=== PATIENT | female | born 1975 | race Caucasian/White ===

== ENCOUNTER 2018-10-02 15:00 | Emergency (ER) | payer SELFPAY ==
[~2018-10-02] VITALS: Ht 157.5 cm; Wt 81.6 kg
[2018-10-02 15:24] VITALS: BP 143/74
--- NOTE | 2018-10-02 15:35 | PHYS DOC ---
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 Patient states they were outside all weekend and feels like there might be something that got in her left eye. States her eye has been watering and red since the symptoms started. 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 States her pressures range from 30-50 in left eye. Patient has no symptoms to right eye that she sees out of. States she has not tried any medications at home. Denies eye pain, foreign body sensation, nausea/vomiting, headache, fever, injury, or diplopia. Review of Systems Review of Systems Constitutional: Denies fever or chills [] Eyes: Complains of left eye redness. Denies change in visual acuity or eye pain [] HENT: Denies nasal congestion or sore throat [] Respiratory: Denies cough or shortness of breath [] Cardiovascular: No additional information not addressed in HPI [] GI: Denies abdominal pain, nausea, vomiting, bloody stools or diarrhea [] : Denies dysuria or hematuria [] Musculoskeletal: Denies back pain or joint pain [] Integument: Denies rash or skin lesions [] Neurologic: Denies headache, focal weakness or sensory changes [] All other systems were reviewed and found to be within normal limits, except as documented in this note. Current Medications Current Medications Current Medications Medications (Trade) Dose Ordered Sig/Abbi Start Time Stop Time Status Last Admin Dose Admin Fluorescein Sodium (Ful-Mariam) 1 strip 1X ONCE 10/02/18 15:45 10/02/18 15:46 DC 10/02/18 15:39 1 STRIP Proparacaine HCl (Alcaine) 1 drop 1X ONCE 10/02/18 15:45 10/02/18 15:46 DC 10/02/18 15:39 1 DROP Allergies Allergies Allergies Coded Allergies Type Severity Reaction Last Updated Verified oxycodone Allergy Intermediate 10/02/18 Yes Physical Exam Physical Exam Constitutional: Well developed, well nourished, no acute distress, non-toxic appearance. [] HENT: Normocephalic, atraumatic, bilateral external ears normal, oropharynx moist, no oral exudates, nose normal. [] Eyes: PERRLA, EOMI, mild conjunctival injection. no green discharge. No vision out of left eye. OD 20/40 vision. No corneal abrasion seen. mild clear drainage.[] Neck: Normal range of motion, no tenderness, supple, no stridor. [] Cardiovascular:Heart rate regular rhythm, no murmur [] Lungs & Thorax: Bilateral breath sounds clear to auscultation [] Abdomen: Bowel sounds normal, soft, no tenderness, no masses, no pulsatile masses. [] Skin: Warm, dry, no erythema, no rash. [] Back: No tenderness, no CVA tenderness. [] Extremities: No tenderness, no cyanosis, no clubbing, ROM intact, no edema. [] Neurologic: Alert and oriented X 3, normal motor function, normal sensory function, no focal deficits noted. [] Psychologic: Affect normal, judgement normal, mood normal. [] Current Patient Data Vital Signs Vital Signs Date Time Temp Pulse Resp B/P (MAP) Pulse Ox O2 Delivery O2 Flow Rate FiO2 10/02/18 15:24 97.9 69 16 143/74 (97) 99 Room Air 97.9 EKG EKG [] Radiology/Procedures Radiology/Procedures [] Course & Med Decision Making Course & Med Decision Making Pertinent Labs and Imaging studies reviewed. (See chart for details) []Normal intraocular pressures for patient. Patient is blind in her left eye. Right eye vision is 20/40. No corneal abrasion seen on exam. Patient has follow-up with her smasher later this week. We'll treat with Bleph-10 outpatient. States she's had similar symptoms in the past have improved with antibiotics.Discussed importance of follow-up and reasons to return to the ED. Patient understands and agrees with plan. Dragon Disclaimer Dragon Disclaimer This electronic medical record was generated, in whole or in part, using a voice recognition dictation system. Departure Departure Impression: Primary Impression: Conjunctivitis Disposition: 01 HOME, SELF-CARE Condition: IMPROVED Referrals: NO PCP (PCP) GE MEJIA MD Patient Instructions: Allergic Conjunctivitis, Conjunctivitis (Viral and Bacterial) Scripts Sulfacetamide Sodium (BLEPH-10) 5 Ml Drops 2 DROP OS TID, #5 ML Prov: KAREN FLORES 10/02/18 KAREN FLORES Oct 02, 2018 15:35
[2018-10-02] MEDS ORDERED: FLUORESCEIN OPHTH TEST STRIP. OS ONE (15:45)
[2018-10-02] MEDS ORDERED: PROPARACAINE 0.5% OPHTH SOLUTION 15ML BOTTLE. OS ONE (15:45)
[2018-10-02] MEDS ORDERED: SULF5DRO OS (15:55)
== END 2018-10-02 16:26 | disposition home or self-care (01) ==
LOC: ER 15:00
DX: H10.9 Unspecified conjunctivitis (principal); Z88.5 Allergy status to narcotic agent
CPT/HCPCS: 99283